=== PATIENT | male | born 1950 | race Caucasian/White ===

== ENCOUNTER 2021-07-18 15:45 | Outpatient (CLI) | payer OTHER, SELFPAY ==
--- NOTE | 2021-07-18 | MR_ITS ---
WS: [id number] MRI LUMBAR SPINE NONCONTRAST TECHNIQUE: Sagittal T1, T2 and STIR imaging. Axial T1 and T2 imaging. CLINICAL INFORMATION: LBP, FAILED CHIROPRACTIC TREATMENTS COMPARISON: None. FINDINGS: Lumbar scoliosis. No acute compression. Advanced spondylitic changes lumbar spine. Grade 1 anterolist hesis L4 on L5. Slight retrolisthesis of T12 on L1, L1 on L2, and L2 on L3. Shallow central protrusio n T12-L1 with impingement left subarticular recess and traversing left L1 nerve root. Mild to moderat e left foraminal narrowing at this level. L1-L2: Mild disc bulging with a small central protrusion. Mild central canal stenosis. Impingement diaz barticular recess bilaterally. Mild to moderate left and no significant right foraminal narrowing. Mo derate facet arthropathy. L2-L3: Mild disc bulging with moderate central canal stenosis. Impingement traversing right L3 nerve root. Moderate facet arthropathy. Moderate left and mild right foraminal narrowing. L3-L4: Mild disc osteophyte complex with endplate ridging. Moderate central canal stenosis. Impingeme nt on the traversing right greater than left L4 nerve roots. Moderate facet arthropathy with ligament um flavum hypertrophy. Moderate to severe right foraminal narrowing. Left foramen is patent. L4-L5: Grade 1 anterolisthesis L4 on L5 measuring 5 mm with severe central canal stenosis. Impingemen t on the traversing L5 nerve roots. Advanced facet arthropathy. Severe right foraminal narrowing. Mil d left foraminal narrowing. L5-S1: Disc osteophyte complex with endplate ridging. Advanced left facet arthropathy. Mild left and no significant right foraminal narrowing. Impingement on the traversing left S1 nerve root and subart icular recess. MR/MR lumbar spine wo con* [id number] IMPRESSION: 1. Lumbar scoliosis. No acute compression. Grade 1 anterolisthesis L4 on L5 me asuring 5 mm. 2. Moderate central canal stenosis L2-3 and L3-4. Severe central canal stenosi s L4-5 with impingement right subarticular recess and traversing right L5 nerve root. 3. Moderat left L2-3, right L3-4 and severe right L4-5 foraminal narrowing. Im pingement on the exiting right L3 and L4 nerve roots respectively. 4. Mild central canal stenosis L1-2 with impingement subarticular recess. 5. Advanced facet arthropathy L4-L5 and L5-S1 worse at L5-S1 on the left. 6. Disc osteophyte complex L5-S1 impinges the traversing left S1 nerve root an d exiting left L5 nerve root.
== END 2021-07-18 15:46 | disposition home or self-care (01) ==
LOC: RADSHAW 15:46
PROVIDERS: PCP Emergency Medicine Emergency Medical Services; Visit Provider Emergency Medicine Emergency Medical Services
DX: M41.86 Other forms of scoliosis, lumbar region (principal); M48.061 Spinal stenosis, lumbar region without neurogenic claudication; M25.78 Osteophyte, vertebrae; M54.50 Low back pain, unspecified
CPT/HCPCS: 72148

== ENCOUNTER → 2021-08-01 14:26 | Outpatient (BNVA) | payer OTHER, SELFPAY | PROVIDERS: PCP Emergency Medicine Emergency Medical Services; Referring Provider Emergency Medicine Emergency Medical Services; Visit Provider Orthopaedic Surgery | DX: M54.50 Low back pain, unspecified (principal) | CPT/HCPCS: 72110 ==

== ENCOUNTER → 2022-04-24 09:19 | Outpatient (BNVA) | payer OTHER, SELFPAY | PROVIDERS: PCP Emergency Medicine Emergency Medical Services; Visit Provider Surgery | DX: K40.90 Unilateral inguinal hernia, without obstruction or gangrene, not specified as recurrent (principal) | CPT/HCPCS: 99204 ==

== ENCOUNTER 2022-05-02 10:38 | Day surgery (SDC) | payer OTHER, SELFPAY ==
[2022-05-01 14:58] VITALS: BMI 22.1
[2022-05-02] VITALS (8 sets, daily range): BP systolic 117–137; BP diastolic 78–95; PULSE 68–84; RESP 16–18; TEMP 36.1–36.6; O2SAT 95–98
--- NOTE | 2022-05-02 10:47 | W.PM.OPSFHP ---
Same Day Surgery H&P Indication for Procedure/HPI DATE OF PROCEDURE: May 02, 2022 CHIEF COMPLAINT/INDICATIONFOR SURGICAL PROCEDURE: left inguinal hernia PREOP DIAGNOSIS: inguinal hernia PLANNED PROCEDURE: Operation Date: 05/02/22 12:00 Proposed Procedures p lap poss open left inguinal hernia 58487,K40.90(Left) - Shay Wolff MD Medications/Allergies* Home Medications Medication Instructions Recorded Confirmed Type allopurinol 300 mg tablet 300 mg PO DAILY 04/24/22 05/01/22 History amlodipine 10 mg tablet 10 mg PO DAILY 04/24/22 05/01/22 History atorvastatin 80 mg tablet 40 mg PO DAILY 04/24/22 05/01/22 History hydrochlorothiazide 25 mg tablet 25 mg PO DAILY 04/24/22 05/01/22 History lisinopril 40 mg tablet 40 mg PO DAILY 04/24/22 05/01/22 History metoprolol tartrate 100 mg tablet 100 mg PO DAILY 04/24/22 05/01/22 History Allergies/Adverse Reactions Allergy/AdvReac Type Severity Reaction Status Date / Time No Known Allergies Allergy Verified 04/24/22 09:35 Pertinent History/Comorbid Conditions* Medical History (Updated 04/24/22 @ 10:05 by Shay Wolff MD) Gout Hyperlipemia Hypertension Surgical History (Updated 04/24/22 @ 10:05 by Shay Wolff MD) History of left knee replacement Family History (Updated 08/01/21 @ 14:35 by Eva Maldonado LPN) Diabetes Social History Smoking and tobacco status: former smoker Alcohol intake: current Alcohol intake frequency: holidays/special occasions only Desire information about alcohol rehabilitation?: No Desire information about substance/drug rehabilitation?: No Counseling given: No Adopted: No Caregiver/support person: Yes Lives independently: No Household members: significant other Housing: House Number of children: 3 Number of grandchildren: 6 service: Yes Current occupational status: retired Current occupational exposures/hazards: No Previous occupational history: [employer] Pets and animals: Yes History of recent travel: No Current gender identity: Male Special muriel needs: No Agree to transfusion: Yes Pertinent Exam Findings alert, oriented x 3 and regular rate & rhythm Recommendations Surgery/Procedure today Coding Level of Care Code 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
[2022-05-02] MEDS: sodium chloride 0.9% 1,000 ML 30 ML IV (11:22)
[2022-05-02] MEDS: midazolam 1 mg/mL INJ 2 mL 2 MG IVP (12:26)
--- NOTE | 2022-05-02 12:37 | P.ANESASSM_ITS ---
Pre-Anesthetic Assessment Height/Weight: Height 1.83 m Weight 73.936 kg Temp Pulse Resp BP Pulse Ox O2 Del Method 97.6 F 74 18 137/82 95 05/02/22 11:00 05/02/22 11:00 05/02/22 11:00 05/02/22 11:00 05/02/22 11:00 05/02/22 11:02 Preop Diagnosis: left inguinal hernia Operation Date: 05/02/22 12:00 Proposed Procedures p lap poss open left inguinal hernia 01677,K40.90(Left) - Shay Wolff MD Familial anesthetic complications: none Was Beta Shekhar taken within 24 hours: Yes Last intake: Intake Last Liquid Date 05/02/22 Last Liquid Time 09:00 Last Solid Date 05/01/22 Last Solid Time 22:00 Social No alcohol and No tobacco Exam alert, oriented x 3, clear to auscultation bilaterally and regular rate & rhythm Airway Submandibular: within normal limits Cervical ROM: within normal limits Mallampati: Class II Dentition: partials Comments: Comments: False uppers Very poor lower dentition Pulmonary Sleep Apnea (No longer uses CPAP) CV/HEM Hypertension METS > 4 None reported Hepatic None reported GI Inguinal hernia Metabolic None reported Musc/skel Lower Back Pain and Osteoarthritis/DJD Neuropsych None reported Anesthetic Plan ASA status: 2 Anesthesia: Anesthesia Evaluation and General Other: We discussed risk and benefits of general anesthesia including PONV, sore throat (sometimes severe), corneal abrasion, positioning and peripheral nerve injuries, life threatening allergic reaction, post operative ICU admission requiring prolonged intubation, aspiration, stroke, heart attack, , and rare incidences of recall. Patient consents to proceed with general anesthesia. Risk of > 500 ml blood loss (7ml/kg in children): No Medications/Allergies Home Medications Medication Instructions Recorded Confirmed Last Taken Type allopurinol 300 mg tablet 300 mg PO DAILY 04/24/22 05/01/22 05/01/22 History amlodipine 10 mg tablet 10 mg PO DAILY 04/24/22 05/01/22 05/02/22 History atorvastatin 80 mg tablet 40 mg PO DAILY 04/24/22 05/01/22 05/01/22 History hydrochlorothiazide 25 mg tablet 25 mg PO DAILY 04/24/22 05/01/22 05/01/22 07:00 History lisinopril 40 mg tablet 40 mg PO DAILY 04/24/22 05/01/22 05/01/22 History metoprolol tartrate 100 mg tablet 100 mg PO DAILY 04/24/22 05/01/22 05/01/22 History Allergies Allergy/AdvReac Type Severity Reaction Status Date / Time No Known Allergies Allergy Verified 04/24/22 09:35 Current Medications Generic Name Dose Route Start Last Admin Trade Name Wilfredo PRN Reason Stop Dose Admin Sodium Chloride 1,000 mls @ 30 mls/hr 05/02/22 11:00 05/02/22 11:22 Sodium Chloride 0.9% IV 05/03/22 10:59 30 mls/hr .Q24H JAKOB Administration PFSH Anesthesia Medical History Gout Hyperlipemia Hypertension Surgical History History of left knee replacement Status post left inguinal hernia repair (05/02/22) Family History Other Diabetes Social History Smoking and tobacco status: former smoker Alcohol intake: current Alcohol intake frequency: holidays/special occasions only Desire information about alcohol rehabilitation?: No Desire information about substance/drug rehabilitation?: No Counseling given: No Adopted: No Caregiver/support person: Yes Lives independently: No Household members: significant other Housing: House Number of children: 3 Number of grandchildren: 6 service: Yes Current occupational status: retired Current occupational exposures/hazards: No Previous occupational history: [employer] Pets and animals: Yes History of recent travel: No Current gender identity: Male Special muriel needs: No Agree to transfusion: Yes Data Anesthesia Cardiac Studies: No Data to Display
--- NOTE | 2022-05-02 14:07 | P.OP_ITS ---
Operative Report Date of procedure: May 02, 2022 Pre-op diagnosis: Large reducible left inguinal hernia Post-op diagnosis: Reducible indirect left inguinal hernia Lipoma of the spermatic cord Procedure done: Laparoscopic total extraperitoneal repair of indirect left inguinal hernia with Surgimax 16 x 10cm mesh Excision of lipoma of the spermatic cord Pathology: none sent Surgeon: Shay Wolff Anesthesia: General Condition: stable Disposition: PACU Procedure: The patient was taken to the operating room and intubated under general anesthesia. After IV antibiotic was administered, the abdomen was prepped and draped in a sterile manner. Using a 15 blade, a 1.0 cm transverse incision was made infraumbilically on the left side. Subcutaneous tissue was divided using electrocautery and the anterior rectus sheath divided using an 11 blade. The rectus muscle was retracted laterally and the extraperitoneal space identified. A 11 mm port was placed and 12 mm of pneumoperitoneum was created. A 10 mm 30? scope was introduced and the retrorectus space was opened using the camera up to the pubic symphysis and 5 mm ports were placed in the midline, one 2- fingerbreadths above the pubic symphysis and the other midway between these two ports under direct visualization. Blunt dissection was carried out to open up the tissue in the midline and to the pubic symphysis, which was identified. The dissection was then carried laterally where the iliopubic tract was identified. There was no femoral, obturator or direct hernia noted. The inferior epigastric artery was identified and dissection was carried posterior to it and laterally, the space was opened up to the level of the umbilicus superior to the anterior superior iliac spine. I then proceeded to dissect out the spermatic cord and the large indirect hernial sac was reduced . There was also a lipoma of the spermatic cord which was excised. 15 x 10cm Surgimax 3D mesh was rolled and introduced through the 10 mm port and then rolled laterally and apposed well against the abdominal wall to cover the myopectineal orifice completely. 10 Cc of 0.5% Marcaine was infiltrated into the preperitoneal space. The extra peritoneal space was desufflated under direct visualization to ensure no slippage of hernial sac under the mesh. All ports were removed, the anterior rectus fascia at the infraumbilical port closed using figure of eight 0 Vicryl sutures, subcutaneous tissue approximated using 3-0 Vicryl sutures and skin at all three port sites were closed using running subcuticular 4-0 Monocryl sutures and Dermabond. 10 mL of 0.5% Marcaine was infiltrated at the port sites. The patient was stable throughout the procedure extubated and transferred to recovery room.
[2022-05-02] MEDS: ceFAZolin 2,000 MG in sodium chloride 0.9% (plus) 50 ML 100 MG IV (14:09)
[2022-05-02] MEDS: HYDROcodone-acetaminophen 5-325 mg Tablet 1 TAB PO (17:05)
--- NOTE | 2022-05-02 17:49 | ANE.PACU2 ---
Inpatient post-anesthesia follow up: Airway intact: Yes Vital signs: Temperature 98 F Pulse Rate 72 Respiratory Rate 17 Blood Pressure 128/80 Pulse Oximetry 96 Oxygen Delivery Me thod Room Air Oxygen Flow Rate 6 Fraction of Inspir ed Oxygen Hydration adequate: Yes Nausea and vomiting: No Pain level: 1 Mental status: Baseline
== END 2022-05-02 17:25 | disposition home or self-care (01) ==
PROVIDERS: PCP Emergency Medicine Emergency Medical Services; Visit Provider Surgery
PROC: (CPT 49650; principal; 2022-05-02 12:00)
DX: K40.90 Unilateral inguinal hernia, without obstruction or gangrene, not specified as recurrent (principal); D17.6 Benign lipomatous neoplasm of spermatic cord; G47.30 Sleep apnea, unspecified; I10 Essential (primary) hypertension; E78.5 Hyperlipidemia, unspecified; Z87.891 Personal history of nicotine dependence
CPT/HCPCS: 49505; C1781; J1100; J1170; J2250; J2405; J2704; J2710; J3010; J3490; J7030

== ENCOUNTER → 2022-05-15 09:55 | Outpatient (BNVA) | payer OTHER, SELFPAY | PROVIDERS: PCP Emergency Medicine Emergency Medical Services; Visit Provider Surgery | DX: Z98.890 Other specified postprocedural states (principal) | CPT/HCPCS: 99024 ==

== ENCOUNTER 2023-11-01 21:19 | Emergency (ER) | payer OTHER, SELFPAY ==
[2023-11-01 21:25] VITALS: BP 130/92; PULSE 83; RESP 16; TEMP 36.8; O2SAT 93; BMI 23.7
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
== END 2023-11-01 21:49 | disposition home or self-care (01) ==
PROVIDERS: Emergency Provider Emergency Medicine; PCP Emergency Medicine Emergency Medical Services
DX: S01.01XA Laceration without foreign body of scalp, initial encounter (principal); Z87.891 Personal history of nicotine dependence; E78.5 Hyperlipidemia, unspecified; V57.5XXA Driver of pick-up truck or van injured in collision with fixed or stationary object in traffic accident, initial encounter
CPT/HCPCS: 12001; 99282

== ENCOUNTER 2024-02-13 22:30 | Inpatient (IN) | payer OTHER, SELFPAY ==
[2024-02-13 22:31] VITALS: BP 144/105; PULSE 86; RESP 18; TEMP 36.6; O2SAT 96; BMI 24.4
--- NOTE | 2024-02-13 22:37 | XRR_ITS ---
PROCEDURE INFORMATION: Exam: XR Chest Exam date and time: 02/13/2024 10:52 PM Age: 73 years old Clinical indication: Other: AMS TECHNIQUE: Imaging protocol: Radiologic exam of the chest. Views: 1 view. COMPARISON: CR XR chest 2V* [id number] 03/18/2017 12:40 PM FINDINGS: Lungs: There is a left retrocardiac consolidation. Pleural spaces: Unremarkable. No pleural effusion. No pneumothorax. Heart/Mediastinum: Unremarkable. No cardiomegaly. Bones/joints: Severe degenerative disease of the left acromioclavicular joint with narrowing of the subacromial distance suggestive of rotator cuff disease. Soft tissues: Mild left chest wall soft tissue emphysema. XR/XR chest 1V portable [id number] IMPRESSION: Left retrocardiac pneumonia.
--- NOTE | 2024-02-13 22:37 | CTR_ITS ---
PROCEDURE INFORMATION: Exam: CT Head Without Contrast Exam date and time: 02/13/2024 11:46 PM Age: 73 years old Clinical indication: Altered mental status/memory loss; Additional info: AMS TECHNIQUE: Imaging protocol: Computed tomography of the head without contrast. Radiation optimization: All CT scans at this facility use at least one of these dose optimization techniques: automated exposure control; mA and/or kV adjustment per patient size (includes targeted exams where dose is matched to clinical indication); or iterative reconstruction. COMPARISON: No relevant prior studies available. RADIATION DOSE METRICS: Total DLP (mGy-cm): 638.1 FINDINGS: Brain: Mild chronic ischemic small vessel disease. No recent infarct, intracranial bleed or mass effect. Cerebral ventricles: No ventriculomegaly. Paranasal sinuses: Frothy secretions in the right sphenoid sinus. Mastoid air cells: Visualized mastoid air cells are well aerated. Bones: Unremarkable. No acute fracture. Soft tissues: Frontoparietal scalp skin yara. CT/CT head wo con* [id number] IMPRESSION: No large territorial infarct or intracranial bleed.
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
--- NOTE | 2024-02-13 22:43 | ECG_ITS ---
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 Measurements Intervals [place] Rate: 86 P: 43 ME: 154 QRS: -28 QRSD: 100 T: 56 QT: 375 QTc: 450 Interpretive Statements SINUS RHYTHM INFERIOR MYOCARDIAL INFARCTION , PROBABLY OLD [40+ ms Q WAVE AND/OR ST/T ABNORMALITY IN II/aVF] PROBABLE ANTEROLATERAL MYOCARDIAL INFARCTION , OF INDETERMINATE AGE [35 ms Q WAVE IN I/aVL/V3-V6] Compared to ECG 03/18/2017 11:40:54 No significant changes Electronically Signed On 02-14-2024 0:10:37 CDT by Benjamín Lambert M.D. [id number]
[2024-02-13 22:58] LABS: Basophils % 0.4 %; Eosinophils # 0.4 10^3/uL (0.0-0.8); Eosinophils % 3.3 %; Hematocrit 50.5 % (37-53); Lymphocytes # 1.9 10^3/uL (0.8-4.8); Lymphocytes % 17.9 %; Mean Corpuscular HGB Conc 34.1 g/dL (30-55); Mean Corpuscular Volume 91.2 fl (82-101); Mean Platelet Volume 9.8 fL (7.4-10.4); Monocytes # 1.2 10^3/uL (0.2-0.9); Monocytes % 11.2 %; Neutrophils # 7.12 10^3/uL (1.8-7.7); Neutrophils % 66.3 %; Nucleated Red Blood Cells % 0 %; Platelet Count 343 10^3/cmm (157-399); Red Blood Count 5.54 10^6/uL (3.85-5.65); Red Cell Distribution Width 13.8 % (12.1-15.1); White Blood Count 10.76 10^3/uL (3.29-11.43)
[2024-02-13 23:16] LABS: Alanine Aminotransferase 65 U/L (0-41); Albumin Level 4.9 g/dL (3.5-5.2); Alkaline Phosphatase 139 U/L (40-130); Anion Gap 18.8 (5-19); Aspartate Amino Transferase 48 U/L (0-40); Blood Urea Nitrogen 18 mg/dL (8-23); Calcium 10.1 mg/dL (8.5-10.5); Carbon Dioxide 29 mmol/L (22-29); Chloride 90 mmol/L (98-107); Globulin 3.8 g/dL (1.3-4.6); Glucose 106 mg/dL (65-115); Osmolality Calculated 280 mOsm/kg (285-295); Potassium 3.8 mmol/L (3.5-5.1); Sodium 134 mmol/L (136-145); Total Bilirubin 1.6 mg/dL (0.15-1.2); Total Protein 8.7 g/dL (6.6-8.7)
[2024-02-13 23:20] LABS: Creatinine Clr Calc Pharmacy 94.8975
[2024-02-13 23:31] VITALS: BP 144/105; PULSE 93; O2SAT 96
[2024-02-13 23:58] LABS: Add Urine Microscopic? YES; Bilirubin Urine Neg (Negative); Blood Urine Trace (Negative); Glucose Urine UA Norm (Normal); Ketones Urine Negative (Negative); Leukocyte Esterase Urine Negative (Negative); Nitrate Urine Negative (Negative); Protein Urine Neg (Negative); Specific Gravity, Urine 1.015 (1.005-1.030); Urine Appearance Clear (CLEAR); Urine Color Yellow (Yellow); Urobilinogen Urine 4 mg/dL (Negative); pH Urine 6.5 (5-7)
[2024-02-13 23:59] LABS: Add Urine Culture? No; RBC Urine 0-4 /hpf (0-2)
[2024-02-14] VITALS (7 sets, daily range): BP systolic 124–179; BP diastolic 75–108; PULSE 75–114; RESP 18–24; TEMP 36.3–36.7; O2SAT 91–96; BMI 22.1
--- NOTE | 2024-02-14 00:32 | PC.NURSE ---
Patient's family updated by charge nurse that patient was getting admitted and where he was going.
--- NOTE | 2024-02-14 00:32 | CTR_ITS ---
PROCEDURE INFORMATION: Exam: CT Chest Without Contrast; Diagnostic Exam date and time: 02/14/2024 12:56 AM Age: 73 years old Clinical indication: Other: AMS TECHNIQUE: Imaging protocol: Diagnostic computed tomography of the chest without contrast. Radiation optimization: All CT scans at this facility use at least one of these dose optimization techniques: automated exposure control; mA and/or kV adjustment per patient size (includes targeted exams where dose is matched to clinical indication); or iterative reconstruction. COMPARISON: CR (CHEST, ) 02/13/2024 10:52 PM RADIATION DOSE METRICS: Total DLP (mGy-cm): 695.3 FINDINGS: Lungs: There are ground-glass infiltrates in the left upper lobe and left lower lobe. Atelectatic changes in the right lower lobe. Pleural spaces: There is a left pleural effusion. Heart: Unremarkable. No cardiomegaly. No pericardial effusion. Coronary arteries: Moderate coronary calcifications. Lymph nodes: Calcified mediastinal lymph nodes. Calcified left hilar lymph nodes. Vasculature: Vascular calcifications. Bones/joints: There is a nondisplaced fracture of the posterior arch of the left 7th rib, posterior arch of the left 5th rib, minimally displaced fracture of the posterior arch of the left 3rd rib and posterior arches of the left 1st and 2nd ribs. Segmental fracture involving the posterior arch of the left 4th rib and anterior arch of the left 4th rib. No right rib fractures. Multilevel degenerative disease of the thoracic spine with small anterior osteophytes. Minimal curvature of the lower thoracic spine convex to the left. Moderate degenerative disease of the left acromioclavicular joint. Soft tissues: Left chest wall soft tissue emphysema. PROCEDURE INFORMATION: Exam: CT Abdomen And Pelvis Without Contrast Exam date and time: 02/14/2024 12:56 AM Age: 73 years old Clinical indication: Other: AMS TECHNIQUE: Imaging protocol: Computed tomography of the abdomen and pelvis without contrast. Radiation optimization: All CT scans at this facility use at least one of these dose optimization techniques: automated exposure control; mA and/or kV adjustment per patient size (includes targeted exams where dose is matched to clinical indication); or iterative reconstruction. COMPARISON: CT abdomen pelvis w con* [id number] 08/02/2018 9:28 PM RADIATION DOSE METRICS: Total DLP (mGy-cm): 695.3 FINDINGS: Liver: Normal. No mass. Gallbladder and bile ducts: Normal. No calcified stones. No ductal dilation. Pancreas: Normal. No ductal dilation. Spleen: Normal. No splenomegaly. Adrenal glands: Normal. No mass. Kidneys and ureters: Normal. No hydronephrosis. Stomach and bowel: Diverticulosis of the sigmoid colon. Appendix: No evidence of appendicitis. Intraperitoneal space: Unremarkable. No free air. No significant fluid collection. Vasculature: There are vascular calcifications. Lymph nodes: Unremarkable. No enlarged lymph nodes. Urinary bladder: Unremarkable as visualized. Reproductive: Prostate gland calcifications. Bones/joints: Mild degenerative of bilateral sacroiliac joints. Curvature of the lumbar spine convex to the right. Moderate degenerative disease of bilateral hip joints. Bilateral severe L4-L5 facet joint arthropathy with grade 1 anterolisthesis of L4 over L5. Mild retrolisthesis of T12 over L1 and L1 over L2. Soft tissues: Left and right anterior lower abdominal wall soft tissue emphysema. CT/[place] [id number] IMPRESSION: 1. Ground-glass infiltrates in the left upper and left lower lobe, suggestive of pulmonary contusion versus pneumonia. Small left pleural infusion. 2. Left chest wall emphysema with multiple left rib fractures and a segmental fracture of the left 4th rib. No pneumothorax. Left chest wall emphysema. IMPRESSION: 1. No acute intra-abdominal process. 2. Emphysema of the anterior lower abdominal wall, likely posttraumatic.
--- NOTE | 2024-02-14 00:32 | ECG_ITS ---
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 Measurements Intervals [place] Rate: 86 P: 48 MA: 161 QRS: 4 QRSD: 98 T: 70 QT: 381 QTc: 457 Interpretive Statements SINUS RHYTHM POSSIBLE INFERIOR MYOCARDIAL INFARCTION , PROBABLY OLD [30 ms Q WAVE IN II/aVF] Compared to ECG 02/13/2024 22:43:06 No significant changes Electronically Signed On 02-14-2024 8:15:38 CDT by Opal Houston M.D. [id number]
--- NOTE | 2024-02-14 00:32 | PC.NURSE ---
Report was called to DEMETRIUS Bone on Med-Surg. All questions and concerns were addressed at time of report.
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
[2024-02-14 00:43] LABS: Erythrocyte Sedimentation Rate 3 mm/hr (0-10)
[2024-02-14 00:48] LABS: INR 1.01 (0.8-1.2)
[2024-02-14 01:05] LABS: Troponin(5th) Baseline 25 ng/L (0-15)
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
[2024-02-14 01:25] LABS: Amphetamines Screen Urine Negative (Negative); Barbiturates Screen Urine Negative (Negative); Benzodiazepines Screen Urine Positive (Negative); Cocaine Screen Urine Negative (Negative); Opiate Screen Urine Positive (Negative); PCP Screen Urine Negative (Negative); THC Screen Urine Negative (Negative)
[2024-02-14] MEDS: HYDROcodone-acetaminophen 5-325 mg Tablet 1 TAB PO ×3 (01:40→15:27)
[2024-02-14] MEDS: enoxaparin 40 mg/0.4 mL Syringe SUBCUT (01:40)
[2024-02-14] MEDS: pantoprazole 40 mg SDV IVP (01:40)
[2024-02-14] MEDS: sodium chloride 0.9% 1,000 ML 75 ML IV ×2 (01:40→15:21)
[2024-02-14] MEDS: vancomycin 1,500 MG/300 ML PIGGYBACK 200 MG IV ×2 (01:46→15:21)
[2024-02-14 01:59] LABS: Ammonia 20 umol/L (16-60); Lactic Sepsis W/Reflex 1.5 mmol/L (0.5-2.2); Troponin 5 2HR 24.15 ng/L (0-15)
[2024-02-14 02:06] LABS: Troponin 5 2HR Delta -0.85 ABS# (0-10)
[2024-02-14 02:08] LABS: NT Pro B Type Natriuretic Pept 384 pg/mL (0-125); Procalcitonin 0.09 ng/mL (0-0.5)
[2024-02-14 02:20] LABS: Alcohol Level < 10 mg/dL (0-10); C Reactive Protein 30.7 mg/L (0.0-4.9); Chol HDL Ratio 2.78 mg/dL (1.0-5.00); Cholesterol 128 mg/dL (0-200); Gamma Glutamyl Transferase 83 U/L (8-61); HDL Cholesterol 46 mg/dL (60-100); LDL Cholesterol Calculated 63 mg/dL (50-129); LDL HDL Ratio 1.37 RATIO (0.00-3.22); Lipase 28 U/L (13-60); Triglycerides 97 mg/dL (0-150)
[2024-02-14 03:15] LABS: Estmated Average Glucose 117; Hemoglobin A1C 5.7 % (4.0-6.0)
[2024-02-14 03:44] LABS: Adenovirus Not Detected (NOT DETECT); Chlamydia Pneumoniae Not Detected (NOT DETECT); Coronavirus 229E,HKU1,NL63,OC4 Not Detected (NOT DETECT); Human Metapneumovirus Not Detected (NOT DETECT); Human Rhinovirus/Enterovirus Not Detected (NOT DETECT); Influenza A Not Detected (NOT DETECT); Influenza A H1 Not Detected (NOT DETECT); Influenza A H1-2009 Not Detected (NOT DETECT); Influenza A H3 Not Detected (NOT DETECT); Influenza B Not Detected (NOT DETECT); Mycoplasma Pneumoniae Not Detected (NOT DETECT); Parainfluenza Virus Type 1 Not Detected (NOT DETECT); Parainfluenza Virus Type 2 Not Detected (NOT DETECT); Parainfluenza Virus Type 3 Not Detected (NOT DETECT); Parainfluenza Virus Type 4 Not Detected (NOT DETECT); Respiratory Syncytial Virus A Not Detected (NOT DETECT); Respiratory Syncytial Virus B Not Detected (NOT DETECT); SARS-COV-2 Not Detected (NOT DETECT)
[2024-02-14] MEDS: piperacillin-tazobactam 3.375 GM in sodium chloride 0.9% (plus) 50 ML IV ×3 (03:54→20:29)
[2024-02-14 06:04] LABS: Troponin 5 6HR 20.45 ng/L (0-15)
[2024-02-14 06:06] LABS: Troponin 5 6HR Delta -4.55 ng/L (0-12)
[2024-02-14] MEDS: atorvastatin 40 mg Tablet PO (08:44)
[2024-02-14] MEDS: amlodipine 10 mg Tablet PO (08:44)
[2024-02-14] MEDS: lisinopril 20 mg Tablet 40 MG PO (08:44)
[2024-02-14] MEDS: hydroCHLOROthiazide 25 mg Tablet PO (08:44)
[2024-02-14] MEDS: docusate sodium 100 mg Capsule PO ×2 (08:44→17:17)
[2024-02-14] MEDS: allopurinol 300 mg Tablet PO (08:44)
--- NOTE | 2024-02-14 10:57 | PM.MISC ---
Miscellaneous Note Note: seen this morning pt pulled out his IV's last night he is confused unable to give any meaninful history sitter at bedside no family here right now conitnue plan as per HnP
--- NOTE | 2024-02-14 11:27 | PC.SOCIAL ---
IMM Update pg 2 of IMM updated and reviewed w/ patient. Copy provided and copy dated, initialed and placed in chart.
[2024-02-15] VITALS: BP 129/82; PULSE 101; RESP 18; TEMP 36.9; O2SAT 97
[2024-02-15] MEDS: pantoprazole 40 mg SDV IVP (00:18)
[2024-02-15] MEDS: enoxaparin 40 mg/0.4 mL Syringe SUBCUT (00:18)
[2024-02-15] MEDS: HYDROcodone-acetaminophen 5-325 mg Tablet 1 TAB PO ×4 (00:18→20:14)
[2024-02-15] MEDS: vancomycin 1,500 MG/300 ML PIGGYBACK 200 MG IV ×2 (01:05→14:12)
[2024-02-15] MEDS: piperacillin-tazobactam 3.375 GM in sodium chloride 0.9% (plus) 50 ML IV ×3 (03:00→19:42)
[2024-02-15 04:00] VITALS: BP 138/85; PULSE 104; RESP 17; TEMP 36.9; O2SAT 95
[2024-02-15] MEDS: sodium chloride 0.9% 1,000 ML 75 ML IV ×2 (04:33→18:22)
[2024-02-15 06:56] LABS: Basophils % 0.2 %; Eosinophils # 0.6 10^3/uL (0.0-0.8); Eosinophils % 6.1 %; Hematocrit 42.3 % (37-53); Lymphocytes # 0.8 10^3/uL (0.8-4.8); Lymphocytes % 8.8 %; Mean Corpuscular HGB Conc 33.3 g/dL (30-55); Mean Corpuscular Hemoglobin 31.1 pg (27-33); Mean Corpuscular Volume 93.2 fl (82-101); Mean Platelet Volume 9.7 fL (7.4-10.4); Monocytes # 0.9 10^3/uL (0.2-0.9); Monocytes % 10.1 %; Neutrophils # 6.85 10^3/uL (1.8-7.7); Nucleated Red Blood Cells % 0 %; Platelet Count 311 10^3/cmm (157-399); Red Blood Count 4.54 10^6/uL (3.85-5.65); Red Cell Distribution Width 14.5 % (12.1-15.1); White Blood Count 9.24 10^3/uL (3.29-11.43)
[2024-02-15 07:10] LABS: Anion Gap 13.8 (5-19); Blood Urea Nitrogen 11 mg/dL (8-23); Calcium 8.1 mg/dL (8.5-10.5); Carbon Dioxide 26 mmol/L (22-29); Chloride 100 mmol/L (98-107); Glucose 94 mg/dL (65-115); Magnesium 1.8 mg/dL (1.7-2.3); Osmolality Calculated 281 mOsm/kg (285-295); Potassium 3.8 mmol/L (3.5-5.1); Sodium 136 mmol/L (136-145)
[2024-02-15 07:33] LABS: Creatinine Clr Calc Pharmacy 90.8903
[2024-02-15 08:03] VITALS: BP 132/70; PULSE 95; RESP 18; TEMP 36.2; O2SAT 94
[2024-02-15] MEDS: atorvastatin 40 mg Tablet PO (08:10)
[2024-02-15] MEDS: allopurinol 300 mg Tablet PO (08:10)
[2024-02-15] MEDS: docusate sodium 100 mg Capsule PO ×2 (08:10→17:02)
[2024-02-15] MEDS: amlodipine 10 mg Tablet PO (08:10)
[2024-02-15] MEDS: hydroCHLOROthiazide 25 mg Tablet PO (08:10)
[2024-02-15] MEDS: lisinopril 20 mg Tablet 40 MG PO (08:10)
[2024-02-15 11:41] VITALS: BP 117/71; PULSE 88; RESP 16; TEMP 36.4; O2SAT 92
[2024-02-15 12:58] LABS: Vancomycin Trough 13.9 ug/mL (10-15)
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
[2024-02-15 16:16] VITALS: BP 141/85; PULSE 102; RESP 18; TEMP 36.3; O2SAT 96
[2024-02-15 19:45] VITALS: BP 157/85; PULSE 83; RESP 17; TEMP 37.1; O2SAT 94
[2024-02-16] VITALS: BP 129/74; PULSE 84; RESP 17; TEMP 36.7; O2SAT 98
[2024-02-16] MEDS: enoxaparin 40 mg/0.4 mL Syringe SUBCUT (01:00)
[2024-02-16] MEDS: vancomycin 1,500 MG/300 ML PIGGYBACK 200 MG IV ×2 (01:00→14:23)
[2024-02-16] MEDS: pantoprazole 40 mg SDV IVP (01:00)
[2024-02-16] MEDS: piperacillin-tazobactam 3.375 GM in sodium chloride 0.9% (plus) 50 ML IV ×3 (03:05→19:41)
[2024-02-16 04:00] VITALS: BP 136/78; PULSE 88; RESP 18; TEMP 36.6; O2SAT 98
[2024-02-16 07:38] VITALS: BP 156/91; PULSE 78; RESP 18; TEMP 36.3; O2SAT 94
[2024-02-16] MEDS: docusate sodium 100 mg Capsule PO ×2 (07:53→16:40)
[2024-02-16] MEDS: allopurinol 300 mg Tablet PO (07:53)
[2024-02-16] MEDS: atorvastatin 40 mg Tablet PO (07:53)
[2024-02-16] MEDS: hydroCHLOROthiazide 25 mg Tablet PO (07:53)
[2024-02-16] MEDS: HYDROcodone-acetaminophen 5-325 mg Tablet 1 TAB PO ×2 (07:53→16:40)
[2024-02-16] MEDS: lisinopril 20 mg Tablet 40 MG PO (07:53)
[2024-02-16] MEDS: amlodipine 10 mg Tablet PO (07:54)
[2024-02-16] MEDS: sodium chloride 0.9% 1,000 ML 75 ML IV ×2 (07:55→19:41)
[2024-02-16 11:47] VITALS: BP 146/83; PULSE 81; RESP 18; TEMP 36.4; O2SAT 94
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
[2024-02-16 15:44] VITALS: BP 156/90; PULSE 95; RESP 18; TEMP 36.3; O2SAT 96
[2024-02-16 20:00] VITALS: BP 161/96; PULSE 90; RESP 17; TEMP 36.9; O2SAT 97
[2024-02-17] VITALS: BP 167/95; PULSE 93; RESP 17; TEMP 36.7; O2SAT 96
[2024-02-17] MEDS: enoxaparin 40 mg/0.4 mL Syringe SUBCUT (00:48)
[2024-02-17] MEDS: pantoprazole 40 mg SDV IVP (00:48)
[2024-02-17] MEDS: HYDROcodone-acetaminophen 5-325 mg Tablet 1 TAB PO ×4 (00:49→20:00)
[2024-02-17 01:41] LABS: Basophils % 0.1 %; Eosinophils # 0.5 10^3/uL (0.0-0.8); Eosinophils % 7.4 %; Hematocrit 40.1 % (37-53); Lymphocytes # 0.9 10^3/uL (0.8-4.8); Lymphocytes % 12.1 %; Mean Corpuscular HGB Conc 33.7 g/dL (30-55); Mean Corpuscular Hemoglobin 31.2 pg (27-33); Mean Corpuscular Volume 92.6 fl (82-101); Mean Platelet Volume 9.2 fL (7.4-10.4); Monocytes # 0.8 10^3/uL (0.2-0.9); Monocytes % 11.5 %; Neutrophils # 4.97 10^3/uL (1.8-7.7); Neutrophils % 68.4 %; Nucleated Red Blood Cells % 0 %; Platelet Count 338 10^3/cmm (157-399); Red Blood Count 4.33 10^6/uL (3.85-5.65); White Blood Count 7.28 10^3/uL (3.29-11.43)
[2024-02-17 01:57] LABS: Vancomycin Trough 19.4 ug/mL (10-15)
[2024-02-17 01:58] LABS: Alanine Aminotransferase 30 U/L (0-41); Albumin Level 3.8 g/dL (3.5-5.2); Alkaline Phosphatase 96 U/L (40-130); Anion Gap 13.8 (5-19); Aspartate Amino Transferase 18 U/L (0-40); Blood Urea Nitrogen 10 mg/dL (8-23); Calcium 8.3 mg/dL (8.5-10.5); Carbon Dioxide 27 mmol/L (22-29); Chloride 98 mmol/L (98-107); Creatinine Clr Calc Pharmacy 91.6373; Globulin 2.2 g/dL (1.3-4.6); Glucose 117 mg/dL (65-115); Osmolality Calculated 280 mOsm/kg (285-295); Potassium 3.8 mmol/L (3.5-5.1); Sodium 135 mmol/L (136-145); Total Bilirubin 0.9 mg/dL (0.15-1.2)
[2024-02-17] MEDS: vancomycin 1,500 MG/300 ML PIGGYBACK 200 MG IV ×2 (02:44→14:57)
[2024-02-17 04:00] VITALS: BP 168/93; PULSE 95; RESP 18; TEMP 36.9; O2SAT 95
[2024-02-17] MEDS: piperacillin-tazobactam 3.375 GM in sodium chloride 0.9% (plus) 50 ML IV ×3 (04:19→20:00)
[2024-02-17 08:04] VITALS: BP 138/81; PULSE 98; RESP 18; TEMP 36.6; O2SAT 93
[2024-02-17] MEDS: amlodipine 10 mg Tablet PO (08:29)
[2024-02-17] MEDS: allopurinol 300 mg Tablet PO (08:29)
[2024-02-17] MEDS: docusate sodium 100 mg Capsule PO ×2 (08:29→17:04)
[2024-02-17] MEDS: atorvastatin 40 mg Tablet PO (08:29)
[2024-02-17] MEDS: lisinopril 20 mg Tablet 40 MG PO (08:29)
[2024-02-17] MEDS: hydroCHLOROthiazide 25 mg Tablet PO (08:29)
[2024-02-17] MEDS: sodium chloride 0.9% 1,000 ML 75 ML IV ×2 (08:30→20:00)
[2024-02-17 12:13] VITALS: BP 158/89; PULSE 81; RESP 16; TEMP 36.6; O2SAT 94
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
[2024-02-17 16:08] VITALS: BP 151/82; PULSE 85; RESP 18; TEMP 36.6; O2SAT 94
[2024-02-17 19:47] VITALS: BP 122/75; PULSE 86; RESP 20; TEMP 36.7; O2SAT 96
[2024-02-18] VITALS (7 sets, daily range): BP systolic 127–164; BP diastolic 78–92; PULSE 62–114; RESP 16–20; TEMP 36.3–36.9; O2SAT 91–96; BMI 22.6
[2024-02-18] MEDS: enoxaparin 40 mg/0.4 mL Syringe SUBCUT (03:49)
[2024-02-18] MEDS: pantoprazole 40 mg SDV IVP (03:50)
[2024-02-18] MEDS: vancomycin 1,500 MG/300 ML PIGGYBACK 200 MG IV ×2 (03:50→15:07)
[2024-02-18] MEDS: HYDROcodone-acetaminophen 5-325 mg Tablet 1 TAB PO ×4 (03:51→22:23)
[2024-02-18] MEDS: piperacillin-tazobactam 3.375 GM in sodium chloride 0.9% (plus) 50 ML IV ×3 (05:35→19:38)
[2024-02-18] MEDS: docusate sodium 100 mg Capsule PO ×2 (08:36→17:05)
[2024-02-18] MEDS: hydroCHLOROthiazide 25 mg Tablet PO (08:37)
[2024-02-18] MEDS: amlodipine 10 mg Tablet PO (08:37)
[2024-02-18] MEDS: allopurinol 300 mg Tablet PO (08:37)
[2024-02-18] MEDS: atorvastatin 40 mg Tablet PO (08:37)
[2024-02-18] MEDS: lisinopril 20 mg Tablet 40 MG PO (08:37)
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
[2024-02-18] MEDS: sodium chloride 0.9% 1,000 ML 75 ML IV (13:30)
[2024-02-18] MEDS: haloperidol inj 5 mg/mL INJ 1 mL 1 MG IM (15:07)
[2024-02-19] VITALS (9 sets, daily range): BP systolic 129–162; BP diastolic 71–97; PULSE 81–92; RESP 16–18; TEMP 36.4–36.8; O2SAT 95–97
[2024-02-19] MEDS: vancomycin 1,500 MG/300 ML PIGGYBACK 200 MG IV ×2 (03:23→16:39)
[2024-02-19] MEDS: enoxaparin 40 mg/0.4 mL Syringe SUBCUT (05:29)
[2024-02-19] MEDS: pantoprazole 40 mg SDV IVP (05:29)
[2024-02-19] MEDS: piperacillin-tazobactam 3.375 GM in sodium chloride 0.9% (plus) 50 ML IV ×2 (08:54→17:41)
[2024-02-19] MEDS: hydroCHLOROthiazide 25 mg Tablet PO (08:55)
[2024-02-19] MEDS: atorvastatin 40 mg Tablet PO (08:55)
[2024-02-19] MEDS: allopurinol 300 mg Tablet PO (08:55)
[2024-02-19] MEDS: lisinopril 20 mg Tablet 40 MG PO (08:56)
[2024-02-19] MEDS: amlodipine 10 mg Tablet PO (08:56)
[2024-02-19] MEDS: docusate sodium 100 mg Capsule PO ×2 (08:56→17:41)
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
[2024-02-19] MEDS: HYDROcodone-acetaminophen 5-325 mg Tablet 1 TAB PO ×2 (14:46→20:59)
[2024-02-19] MEDS: acetaminophen 325 mg Tablet 650 MG PO (17:41)
[2024-02-19] MEDS: sodium chloride 0.9% 1,000 ML 75 ML IV (19:33)
[2024-02-20] MEDS: piperacillin-tazobactam 3.375 GM in sodium chloride 0.9% (plus) 50 ML IV ×3 (00:15→17:14)
[2024-02-20] MEDS: vancomycin 1,500 MG/300 ML PIGGYBACK 200 MG IV ×2 (03:48→15:33)
[2024-02-20 04:00] VITALS: BP 165/99; PULSE 93; RESP 18; TEMP 36.6; O2SAT 97
[2024-02-20] MEDS: pantoprazole 40 mg SDV IVP (05:17)
[2024-02-20] MEDS: enoxaparin 40 mg/0.4 mL Syringe SUBCUT (05:17)
[2024-02-20 07:43] VITALS: BP 149/84; PULSE 90; RESP 16; TEMP 36.8; O2SAT 96
[2024-02-20] MEDS: HYDROcodone-acetaminophen 5-325 mg Tablet 1 TAB PO ×2 (09:54→18:33)
[2024-02-20] MEDS: hydroCHLOROthiazide 25 mg Tablet PO (09:54)
[2024-02-20] MEDS: allopurinol 300 mg Tablet PO (09:54)
[2024-02-20] MEDS: atorvastatin 40 mg Tablet PO (09:54)
[2024-02-20] MEDS: docusate sodium 100 mg Capsule PO ×2 (09:54→17:14)
[2024-02-20] MEDS: amlodipine 10 mg Tablet PO (09:54)
[2024-02-20] MEDS: lisinopril 20 mg Tablet 40 MG PO (09:54)
[2024-02-20] MEDS: sodium chloride 0.9% 1,000 ML 75 ML IV (09:55)
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
[2024-02-20 11:46] VITALS: BP 152/82; PULSE 83; RESP 16; TEMP 36.6; O2SAT 96
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
[2024-02-20 16:00] VITALS: BP 147/82; PULSE 91; RESP 16; TEMP 36.8; O2SAT 96
[2024-02-20 20:00] VITALS: BP 146/82; PULSE 99; RESP 17; TEMP 37.3; O2SAT 95
[2024-02-21] VITALS: BP 155/84; PULSE 97; RESP 17; TEMP 37; O2SAT 95
[2024-02-21] MEDS: piperacillin-tazobactam 3.375 GM in sodium chloride 0.9% (plus) 50 ML IV ×3 (00:01→17:55)
[2024-02-21] MEDS: sodium chloride 0.9% 1,000 ML 75 ML IV (00:02)
[2024-02-21] MEDS: HYDROcodone-acetaminophen 5-325 mg Tablet 1 TAB PO ×3 (03:09→19:39)
[2024-02-21] MEDS: vancomycin 1,500 MG/300 ML PIGGYBACK 200 MG IV (03:59)
[2024-02-21 04:00] VITALS: BP 146/84; PULSE 102; RESP 17; TEMP 36.4; O2SAT 93
[2024-02-21] MEDS: pantoprazole 40 mg SDV IVP (05:32)
[2024-02-21] MEDS: enoxaparin 40 mg/0.4 mL Syringe SUBCUT (05:32)
[2024-02-21 07:22] VITALS: BP 142/87; PULSE 99; RESP 16; TEMP 36.8; O2SAT 97
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
[2024-02-21] MEDS: atorvastatin 40 mg Tablet PO (09:20)
[2024-02-21] MEDS: docusate sodium 100 mg Capsule PO ×2 (09:21→17:56)
[2024-02-21] MEDS: amlodipine 10 mg Tablet PO (09:21)
[2024-02-21] MEDS: lisinopril 20 mg Tablet 40 MG PO (09:21)
[2024-02-21] MEDS: hydroCHLOROthiazide 25 mg Tablet PO (09:21)
[2024-02-21] MEDS: allopurinol 300 mg Tablet PO (09:21)
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
[2024-02-21 11:50] VITALS: BP 146/75; PULSE 94; RESP 17; TEMP 37; O2SAT 95
[2024-02-21 15:28] VITALS: BP 145/86; PULSE 94; RESP 16; TEMP 37.1; O2SAT 95
[2024-02-21 20:00] VITALS: BP 124/75; PULSE 101; RESP 18; TEMP 36.7; O2SAT 94
[2024-02-22] VITALS: BP 149/87; PULSE 88; RESP 19; TEMP 36.7; O2SAT 95
[2024-02-22] MEDS: piperacillin-tazobactam 3.375 GM in sodium chloride 0.9% (plus) 50 ML IV ×3 (01:36→18:00)
[2024-02-22 04:00] VITALS: BP 145/91; PULSE 87; RESP 17; TEMP 36.9; O2SAT 95
[2024-02-22] MEDS: pantoprazole 40 mg SDV IVP (05:53)
[2024-02-22] MEDS: enoxaparin 40 mg/0.4 mL Syringe SUBCUT (05:53)
[2024-02-22 07:06] VITALS: BP 148/81; PULSE 90; RESP 15; TEMP 36.7; O2SAT 94
[2024-02-22] MEDS: docusate sodium 100 mg Capsule PO ×2 (07:57→17:10)
[2024-02-22] MEDS: amlodipine 10 mg Tablet PO (07:58)
[2024-02-22] MEDS: lisinopril 20 mg Tablet 40 MG PO (07:58)
[2024-02-22] MEDS: allopurinol 300 mg Tablet PO (07:58)
[2024-02-22] MEDS: atorvastatin 40 mg Tablet PO (07:58)
[2024-02-22] MEDS: hydroCHLOROthiazide 25 mg Tablet PO (07:58)
[2024-02-22] MEDS: acetaminophen 325 mg Tablet 650 MG PO ×2 (08:49→22:45)
[2024-02-22 11:03] VITALS: BP 130/80; PULSE 86; RESP 16; TEMP 36.8; O2SAT 93
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
[2024-02-22 15:10] VITALS: BP 128/75; PULSE 88; RESP 15; TEMP 36.8; O2SAT 96
[2024-02-22 16:28] LABS: Urine Appearance Clear (CLEAR); Urine Color Yellow (Yellow)
[2024-02-22 16:29] LABS: Add Urine Culture? No; Add Urine Microscopic? YES; Bacteria Urine 1+ /hpf; Bilirubin Urine Neg (Negative); Blood Urine 2+ (Negative); Glucose Urine UA Norm (Normal); Ketones Urine Negative (Negative); Leukocyte Esterase Urine Negative (Negative); Nitrate Urine Negative (Negative); Protein Urine Neg (Negative); Urobilinogen Urine Norm (Negative); pH Urine 7 (5-7)
[2024-02-22 20:00] VITALS: BP 120/70; PULSE 93; RESP 20; TEMP 37.3; O2SAT 94
[2024-02-23] VITALS: BP 146/85; PULSE 100; RESP 18; TEMP 36.8; O2SAT 95
[2024-02-23] MEDS: piperacillin-tazobactam 3.375 GM in sodium chloride 0.9% (plus) 50 ML IV ×3 (03:20→17:36)
[2024-02-23 04:00] VITALS: BP 132/81; PULSE 90; RESP 18; TEMP 36.7; O2SAT 98
[2024-02-23 05:42] LABS: Basophils % 0.5 %; Eosinophils # 0.2 10^3/uL (0.0-0.8); Eosinophils % 5.5 %; Hematocrit 41.2 % (37-53); Lymphocytes # 0.7 10^3/uL (0.8-4.8); Lymphocytes % 20.3 %; Mean Corpuscular Hemoglobin 30.8 pg (27-33); Mean Corpuscular Volume 90.7 fl (82-101); Mean Platelet Volume 9.2 fL (7.4-10.4); Monocytes # 0.9 10^3/uL (0.2-0.9); Monocytes % 23.8 %; Neutrophils # 1.78 10^3/uL (1.8-7.7); Neutrophils % 48.8 %; Nucleated Red Blood Cells % 0 %; Platelet Count 363 10^3/cmm (157-399); Red Blood Count 4.54 10^6/uL (3.85-5.65); Red Cell Distribution Width 14.3 % (12.1-15.1); White Blood Count 3.65 10^3/uL (3.29-11.43)
[2024-02-23] MEDS: enoxaparin 40 mg/0.4 mL Syringe SUBCUT (05:50)
[2024-02-23] MEDS: pantoprazole 40 mg SDV IVP (05:51)
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
[2024-02-23 06:08] LABS: Alanine Aminotransferase 32 U/L (0-41); Albumin Level 3.9 g/dL (3.5-5.2); Alkaline Phosphatase 140 U/L (40-130); Anion Gap 12.2 (5-19); Aspartate Amino Transferase 26 U/L (0-40); Blood Urea Nitrogen 12 mg/dL (8-23); Calcium 8.4 mg/dL (8.5-10.5); Carbon Dioxide 28 mmol/L (22-29); Chloride 90 mmol/L (98-107); Globulin 2.7 g/dL (1.3-4.6); Glucose 119 mg/dL (65-115); Osmolality Calculated 265 mOsm/kg (285-295); Potassium 3.2 mmol/L (3.5-5.1); Sodium 127 mmol/L (136-145); Total Bilirubin 0.5 mg/dL (0.15-1.2); Total Protein 6.6 g/dL (6.6-8.7)
[2024-02-23 08:07] VITALS: BP 160/78; PULSE 97; RESP 17; TEMP 36.4; O2SAT 92
[2024-02-23] MEDS: acetaminophen 325 mg Tablet 650 MG PO (08:21)
[2024-02-23] MEDS: amlodipine 10 mg Tablet PO (08:22)
[2024-02-23] MEDS: atorvastatin 40 mg Tablet PO (08:22)
[2024-02-23] MEDS: allopurinol 300 mg Tablet PO (08:22)
[2024-02-23] MEDS: hydroCHLOROthiazide 25 mg Tablet PO (08:22)
[2024-02-23] MEDS: lisinopril 20 mg Tablet 40 MG PO (08:22)
[2024-02-23] MEDS: docusate sodium 100 mg Capsule PO ×2 (08:22→17:34)
[2024-02-23 12:04] VITALS: BP 114/73; PULSE 77; RESP 18; TEMP 36.4; O2SAT 96
[2024-02-23 15:57] VITALS: BP 114/67; PULSE 81; RESP 19; TEMP 36.4; O2SAT 97
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
[2024-02-23] MEDS: potassium chloride ER 20 mEq Tablet PO (16:33)
[2024-02-23 19:51] VITALS: BP 108/66; PULSE 98; RESP 18; TEMP 37.1; O2SAT 95
[2024-02-24] VITALS: BP 155/96; PULSE 62; RESP 20; TEMP 37; O2SAT 96
[2024-02-24] MEDS: piperacillin-tazobactam 3.375 GM in sodium chloride 0.9% (plus) 50 ML IV ×3 (03:13→17:36)
[2024-02-24 04:00] VITALS: BP 133/80; PULSE 80; RESP 20; TEMP 36.8; O2SAT 96
[2024-02-24 04:04] LABS: Basophils % 0.6 %; Eosinophils # 0.2 10^3/uL (0.0-0.8); Eosinophils % 6.4 %; Hematocrit 40.6 % (37-53); Lymphocytes # 0.7 10^3/uL (0.8-4.8); Lymphocytes % 18.7 %; Mean Corpuscular Hemoglobin 30.7 pg (27-33); Mean Corpuscular Volume 90.4 fl (82-101); Mean Platelet Volume 9.3 fL (7.4-10.4); Monocytes # 0.9 10^3/uL (0.2-0.9); Monocytes % 25.4 %; Neutrophils # 1.73 10^3/uL (1.8-7.7); Neutrophils % 48.3 %; Nucleated Red Blood Cells % 0 %; Platelet Count 315 10^3/cmm (157-399); Red Blood Count 4.49 10^6/uL (3.85-5.65); Red Cell Distribution Width 14.3 % (12.1-15.1); White Blood Count 3.58 10^3/uL (3.29-11.43)
[2024-02-24 04:25] LABS: Alanine Aminotransferase 40 U/L (0-41); Albumin Level 3.9 g/dL (3.5-5.2); Alkaline Phosphatase 159 U/L (40-130); Anion Gap 11.8 (5-19); Aspartate Amino Transferase 29 U/L (0-40); Blood Urea Nitrogen 13 mg/dL (8-23); Carbon Dioxide 28 mmol/L (22-29); Chloride 91 mmol/L (98-107); Globulin 2.7 g/dL (1.3-4.6); Glucose 109 mg/dL (65-115); Magnesium 1.9 mg/dL (1.7-2.3); Osmolality Calculated 265 mOsm/kg (285-295); Potassium 3.8 mmol/L (3.5-5.1); Sodium 127 mmol/L (136-145); Total Bilirubin 0.5 mg/dL (0.15-1.2); Total Protein 6.6 g/dL (6.6-8.7)
[2024-02-24] MEDS: pantoprazole 40 mg SDV IVP (05:11)
[2024-02-24] MEDS: enoxaparin 40 mg/0.4 mL Syringe SUBCUT (05:11)
[2024-02-24] MEDS: acetaminophen 325 mg Tablet 650 MG PO ×2 (05:12→18:03)
[2024-02-24 07:35] VITALS: BP 150/81; PULSE 75; RESP 18; TEMP 36.3; O2SAT 97
[2024-02-24] MEDS: lisinopril 20 mg Tablet 40 MG PO (08:06)
[2024-02-24] MEDS: atorvastatin 40 mg Tablet PO (08:06)
[2024-02-24] MEDS: allopurinol 300 mg Tablet PO (08:06)
[2024-02-24] MEDS: docusate sodium 100 mg Capsule PO ×2 (08:06→17:30)
[2024-02-24] MEDS: amlodipine 10 mg Tablet PO (08:06)
[2024-02-24 11:16] VITALS: BP 130/80; PULSE 82; RESP 18; TEMP 36.4; O2SAT 96
--- NOTE | 2024-02-24 12:01 | PC.SOCIAL ---
IMM Update Pg. 2 of IMM updated and reviewed with patient who verbalized understanding. Copy provided.
--- NOTE | 2024-02-24 14:55 | PC.NURSE ---
DISCHARGE Patient discharge was delayed due to issues with transportation. [facility] was set up, but then got called away and couldn't get here in time for patient to make it to [place] in time. Discharge ordered cancelled.
[2024-02-24 16:10] VITALS: BP 117/77; PULSE 72; RESP 19; TEMP 36.4; O2SAT 96
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
[2024-02-24 20:00] VITALS: BP 104/59; PULSE 92; RESP 17; TEMP 36.6; O2SAT 96
[2024-02-25] VITALS: BP 159/96; PULSE 92; RESP 18; TEMP 36.6; O2SAT 97
[2024-02-25] MEDS: piperacillin-tazobactam 3.375 GM in sodium chloride 0.9% (plus) 50 ML IV (02:31)
[2024-02-25 04:00] VITALS: BP 149/75; PULSE 82; RESP 17; TEMP 36.8; O2SAT 98
[2024-02-25] MEDS: enoxaparin 40 mg/0.4 mL Syringe SUBCUT (05:50)
[2024-02-25] MEDS: pantoprazole 40 mg SDV IVP (05:50)
[2024-02-25 07:35] VITALS: BP 162/94; PULSE 85; RESP 18; TEMP 36.2; O2SAT 97
[2024-02-25] MEDS: lisinopril 20 mg Tablet 40 MG PO (08:30)
[2024-02-25] MEDS: amlodipine 10 mg Tablet PO (08:30)
[2024-02-25] MEDS: atorvastatin 40 mg Tablet PO (08:30)
[2024-02-25] MEDS: docusate sodium 100 mg Capsule PO (08:30)
[2024-02-25] MEDS: allopurinol 300 mg Tablet PO (08:30)
[2024-02-25] MEDS: acetaminophen 325 mg Tablet 650 MG PO (08:35)
--- NOTE | 2024-02-25 09:11 | PC.NURSE ---
Report called to Fideilna at [facility].
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
[2024-02-25 09:36] VITALS: BP 162/94; PULSE 85; RESP 18; TEMP 36.2; O2SAT 97
== END 2024-02-25 09:38 | disposition skilled nursing facility (03) | DRG 193 ==
LOC: ER 22:57 → MEDSURG 02-14 00:26
PROVIDERS: Family Medicine; Internal Medicine; Admitting Provider Family Medicine; Emergency Provider Emergency Medicine; PCP Emergency Medicine Emergency Medical Services; Visit Provider Student in an Organized Health Care Education/Training Program
DX: J18.9 Pneumonia, unspecified organism (principal); G93.41 Metabolic encephalopathy; I61.1 Nontraumatic intracerebral hemorrhage in hemisphere, cortical; E87.1 Hypo-osmolality and hyponatremia; I10 Essential (primary) hypertension; E78.5 Hyperlipidemia, unspecified; M10.9 Gout, unspecified; Z96.652 Presence of left artificial knee joint; F03.90 Unspecified dementia, unspecified severity, without behavioral disturbance, psychotic disturbance, mood disturbance, and anxiety; E87.6 Hypokalemia; Z11.52 Encounter for screening for COVID-19; Z87.891 Personal history of nicotine dependence; Z75.1 Person awaiting admission to adequate facility elsewhere; Z86.73 Personal history of transient ischemic attack (TIA), and cerebral infarction without residual deficits
CPT/HCPCS: 36415; 70450; 70551; 71045; 71250; 74176; 80048; 80053; 80061; 80202; 80306; 80307; 81001; 82140; 82977; 83036; 83605; 83690; 83735; 83880; 84145; 84443; 84484; 85025; 85610; 85651; 86140; 87040; 87070; 87205; 87486; 87581; 87633; 93005; 93306; 93880; 96372; 97110; 97116; 97161; 97166; 97530; 97535; 99285; C9113; J1630; J1650; J2543; J3370; J7030